=== PATIENT | male | born 1945 | race African-American/Black ===

== ENCOUNTER 2016-11-22 13:02 | Inpatient (IN) | payer MEDICARE, OTHER ==
[~2016-11-22] VITALS: Ht 175.3 cm; Wt 78.9 kg
[~2016-11-22 13:02] MED LIST: ATOR20TA65 PO; CLOP75TA33 PO; FAMO20TA8 PO; GLIP5TAB12 PO; LISI-186 PO; LORA10TA7 PO; LOSA25TA12 PO; METF-240 PO; PRED5TAB48 PO; TAMS0.4C31 PO; VERA240C2 PO; WARF2TAB55 PO
[2016-11-22] MEDS ORDERED: METHYLPREDNISOLONE SOD SUCC 125 MG/2 ML VIAL IV STA (15:44)
[2016-11-22] MEDS ORDERED: IPRATROPIUM/ALBUTEROL 0.5-3(2.5)MG/3ML NEB HHN ONE (16:00)
[2016-11-22 16:19] LABS: HEMATOCRIT. 39.4 % (42.0-52.0); HEMOGLOBIN. 12.4 g/dL (14.0-18.0); MEAN CORPUSCULAR HEMOGLOBIN 27.7 pg (28.0-32.0); MEAN CORPUSCULAR HGB CONC 31.4 g/dL (31.0-37.0); MEAN CORPUSCULAR VOLUME 88.2 fL (80.0-94.0); MEAN PLATELET VOLUME 9.1 fl (7.4-10.4); PLATELET 146 x1000/uL (130-400); RED BLOOD CELL COUNT 4.46 mill/uL (4.7-6.1); RED CELL DISTRIBUTION WIDTH 16.3 % (11.6-14.6); WHITE BLOOD COUNT 12.3 x1000/uL (4.5-11.0)
[2016-11-22 16:20] LABS: DIFFERENTIAL COMMENT 1
[2016-11-22 16:21] LABS: INR 1.5; PARTIAL THROMBOPLASTIN TIME 25.4 sec (24.0-34.0); PROTHROMBIN TIME 15.1 sec
[2016-11-22 16:33] LABS: ALANINE AMINOTRANSFERASE 23 IU/L (13-61); ANION GAP 11; CARBON DIOXIDE 28 mEq/L (21-32); CHLORIDE 110 mEq/L (98-107); INDEX HEMOLYSI 1 (1-3); INDEX ICTERIC 1 (1-4); INDEX LIPEMIC 1 (1-3); NT PRO B-TYPE NATRIURETIC PEP 1118 pg/mL (5-125); TROPONIN I 0.07 ng/mL (0.00-0.04); UREA NITROGEN BLOOD 23 mg/dL (7-21); eGFR > 60 mL/min (>60)
[2016-11-22 16:37] LABS: PLATELET ESTIMATE NORMAL
[2016-11-22 18:36] LABS: BG BASE EXCESS -2.7 mmol/L (-2.0-2.0); BG CARBOXYHEMOGLOBIN 0.9 % (0.5-1.5); BG DEOXYHEMOGLOBIN 5.4 % (0.0-5.0); BG FRACTION INSPIRED OXYGEN 21; BG HCO3 ACT 20.2 mmol/L (22.0-26.0); BG METHEMOGLOBIN 0.4 % (0.0-1.5); BG OXYGEN SATURATION 94.5 % (92.0-98.5); BG OXYHEMOGLOBIN 93.3 % (94.0-97.0); BG PH 7.447 (7.350-7.450); BG PO2 72.2 mmHg (75.0-100.0); BG SAMPLE SITE RIGHT BRACHIAL; BG TOTAL HEMOGLOBIN 13.4 g/dL (12.0-18.0); BG VENT MODE ROOM AIR
[2016-11-22] MEDS ORDERED: CLONIDINE 0.1MG TABLET PO PRN (19:00)
[2016-11-22] MEDS ORDERED: DIPHENHYDRAMINE 50MG/ML VIAL IV PRN (19:00)
[2016-11-22] MEDS ORDERED: HYDROCODONE/ACETAMINOPHEN 5/325MG TABLET PO PRN (19:00)
[2016-11-22] MEDS ORDERED: ONDANSETRON HCL 4MG/2ML VIAL IV PRN (19:00)
[2016-11-22] MEDS ORDERED: ACETAMINOPHEN 325MG TABLET PO PRN (19:00)
[2016-11-22] MEDS ORDERED: IPRATROPIUM/ALBUTEROL 0.5-3(2.5)MG/3ML NEB INH PRN (19:00)
[2016-11-22 21:45] VITALS: BP 109/66
[2016-11-22 22:00] VITALS: BP 109/66
[2016-11-22] MEDS: METHYLPREDNISOLONE SOD SUCC 125 MG/2 ML VIAL IV SCH (22:28)
[2016-11-23] VITALS: BP 112/65
[2016-11-23] MEDS ORDERED: LEVOFLOXACIN 500MG PREMIX 100 ML IV SCH (02:00)
[2016-11-23 04:00] VITALS: BP 140/84
[2016-11-23 04:15] LABS: *AMPHETAMINES SCREEN URINE NEGATIVE (NEGATIVE); *BARBITURATES SCREEN URINE NEGATIVE (NEGATIVE); *BENZODIAZEPINES SCREEN URINE NEGATIVE (NEGATIVE); *COCAINE SCREEN URINE NEGATIVE (NEGATIVE); CANNABINOID URINE SCREEN NEGATIVE (NEGATIVE); ECSTASY MDMA SCREEN URINE NEGATIVE (NEGATIVE); METHADONE URINE SCREEN NEGATIVE (NEGATIVE); OPIATES URINE SCREEN PRESUMTIVE POSITIVE (NEGATIVE); PHENCYCLIDINE URINE SCREEN NEGATIVE (NEGATIVE)
[2016-11-23] MEDS: METHYLPREDNISOLONE SOD SUCC 125 MG/2 ML VIAL IV SCH ×2 (05:29→13:19)
[2016-11-23] MEDS: METFORMIN HCL 500MG TABLET PO SCH ×2 (06:22→17:50)
[2016-11-23 06:23] LABS: HEMATOCRIT. 36.5 % (42.0-52.0); HEMOGLOBIN. 11.5 g/dL (14.0-18.0); MEAN CORPUSCULAR HEMOGLOBIN 27.9 pg (28.0-32.0); MEAN CORPUSCULAR HGB CONC 31.4 g/dL (31.0-37.0); MEAN CORPUSCULAR VOLUME 88.6 fL (80.0-94.0); MEAN PLATELET VOLUME 9.8 fl (7.4-10.4); PLATELET 139 x1000/uL (130-400); RED BLOOD CELL COUNT 4.11 mill/uL (4.7-6.1); RED CELL DISTRIBUTION WIDTH 16.1 % (11.6-14.6); WHITE BLOOD COUNT 11.1 x1000/uL (4.5-11.0)
[2016-11-23 06:33] LABS: DIFFERENTIAL COMMENT 1
[2016-11-23 07:21] LABS: ALBUMIN 2.7 g/dL (3.4-5.0); ANION GAP 13; CARBON DIOXIDE 24 mEq/L (21-32); CHLORIDE 107 mEq/L (98-107); INDEX HEMOLYSI 1 (1-3); INDEX ICTERIC 1 (1-4); INDEX LIPEMIC 1 (1-3); UREA NITROGEN BLOOD 21 mg/dL (7-21)
[2016-11-23 07:26] LABS: ALANINE AMINOTRANSFERASE 20 IU/L (13-61); HDL CHOLESTEROL 43 mg/dL (40-59); LDL CHOLESTEROL 62 mg/dL (5-100); TRIGLYCERIDE 32 mg/dL (0-150); TROPONIN I 0.04 ng/mL (0.00-0.04); eGFR > 60 mL/min (>60)
[2016-11-23 08:00] VITALS: BP 139/86
[2016-11-23] MEDS ORDERED: DEXTROSE 50% WATER 50ML SYRINGE IV PRN (08:45)
[2016-11-23] MEDS: GLIPIZIDE 5MG TABLET PO SCH ×2 (08:48→17:51)
[2016-11-23] MEDS: LISINOPRIL 5MG TABLET PO SCH (08:48)
[2016-11-23] MEDS: VERAPAMIL HCL 240MG SR TABLET PO SCH (08:49)
[2016-11-23] MEDS: CLOPIDOGREL 75MG TABLET PO SCH (08:49)
[2016-11-23] MEDS: FAMOTIDINE 20MG TABLET PO SCH ×2 (08:49→17:51)
[2016-11-23] MEDS: LOSARTAN POTASSIUM 25 MG TABLET PO SCH (08:49)
[2016-11-23] MEDS ORDERED: PREDNISONE 10MG TABLET PO SCH (09:00)
[2016-11-23] MEDS: IPRATROPIUM/ALBUTEROL 0.5-3(2.5)MG/3ML NEB INH SCH ×4 (09:06→20:53)
[2016-11-23 09:58] LABS: ACANTHOCYTES 1+; ANISOCYTOSIS 1+; PLATELET ESTIMATE NORMAL
[2016-11-23] MEDS: INSULIN DETEMIR UD 100 UNITS/ML SYR SUBCUT SCH ×2 (10:40→21:25)
[2016-11-23 12:00] VITALS: BP 124/77
[2016-11-23] MEDS: BLOOD SUGAR DIAGNOSTIC STRIP TEST SCH ×3 (12:18→20:54)
[2016-11-23] MEDS: INSULIN LISPRO 100 UNITS/ML SUBCUT SCH ×3 (13:21→21:23)
[2016-11-23] MEDS: FUROSEMIDE 40MG/4ML VIAL IVP SCH (15:55)
[2016-11-23 16:00] VITALS: BP 108/65
[2016-11-23] MEDS ORDERED: WARFARIN SODIUM 3MG TABLET PO SCH (18:00)
[2016-11-23 20:00] VITALS: BP 107/66
[2016-11-23] MEDS: ATORVASTATIN CALCIUM 20MG TABLET PO SCH (20:53)
[2016-11-23] MEDS: BUDESONIDE 0.5MG/2ML NEB HHN SCH (20:53)
[2016-11-23] MEDS: LORATADINE 10MG TABLET PO SCH (20:54)
[2016-11-23] MEDS: TAMSULOSIN HCL 0.4MG SR CAPSULE PO SCH (20:54)
[2016-11-23] MEDS: NITROGLYCERIN OINT 1GM/INCH UDPKT TD SCH (22:00)
[2016-11-24] VITALS: BP 99/67
[2016-11-24] MEDS: IPRATROPIUM/ALBUTEROL 0.5-3(2.5)MG/3ML NEB INH SCH ×6 (01:01→20:34)
[2016-11-24] MEDS: LEVOFLOXACIN 500MG PREMIX 100 ML IV SCH (03:41)
[2016-11-24 04:00] VITALS: BP 122/70
[2016-11-24 05:41] LABS: HEMATOCRIT. 35.8 % (42.0-52.0); HEMOGLOBIN. 11.3 g/dL (14.0-18.0); MEAN CORPUSCULAR HEMOGLOBIN 27.6 pg (28.0-32.0); MEAN CORPUSCULAR HGB CONC 31.4 g/dL (31.0-37.0); MEAN CORPUSCULAR VOLUME 87.8 fL (80.0-94.0); MEAN PLATELET VOLUME 9.6 fl (7.4-10.4); PLATELET 147 x1000/uL (130-400); RED BLOOD CELL COUNT 4.08 mill/uL (4.7-6.1); RED CELL DISTRIBUTION WIDTH 16.1 % (11.6-14.6)
[2016-11-24 05:44] LABS: INR 1.2; PROTHROMBIN TIME 12.5 sec
[2016-11-24] MEDS: NITROGLYCERIN OINT 1GM/INCH UDPKT TD SCH ×3 (05:46→21:24)
[2016-11-24] MEDS: BLOOD SUGAR DIAGNOSTIC STRIP TEST SCH ×4 (05:53→20:48)
[2016-11-24 06:22] LABS: ANION GAP 13; CALCIUM 8.6 mg/dL (8.5-10.1); CARBON DIOXIDE 27 mEq/L (21-32); CHLORIDE 108 mEq/L (98-107); INDEX HEMOLYSI 1 (1-3); INDEX ICTERIC 1 (1-4); INDEX LIPEMIC 1 (1-3); UREA NITROGEN BLOOD 20 mg/dL (7-21); eGFR > 60 mL/min (>60)
[2016-11-24] MEDS: INSULIN LISPRO 100 UNITS/ML SUBCUT SCH ×4 (06:25→21:23)
[2016-11-24 06:56] LABS: DIFFERENTIAL COMMENT 1
[2016-11-24 08:00] VITALS: BP 124/78
[2016-11-24] MEDS: BUDESONIDE 0.5MG/2ML NEB HHN SCH ×2 (08:45→20:36)
[2016-11-24] MEDS: VERAPAMIL HCL 240MG SR TABLET PO SCH (09:36)
[2016-11-24] MEDS: FAMOTIDINE 20MG TABLET PO SCH ×2 (09:36→17:15)
[2016-11-24] MEDS: CLOPIDOGREL 75MG TABLET PO SCH (09:37)
[2016-11-24] MEDS: LOSARTAN POTASSIUM 25 MG TABLET PO SCH (09:37)
[2016-11-24] MEDS: GLIPIZIDE 5MG TABLET PO SCH ×2 (09:37→17:16)
[2016-11-24] MEDS: METFORMIN HCL 500MG TABLET PO SCH ×2 (09:37→17:16)
[2016-11-24] MEDS: LISINOPRIL 5MG TABLET PO SCH (09:45)
[2016-11-24] MEDS: PREDNISONE 20MG TABLET PO SCH (09:45)
[2016-11-24 12:00] VITALS: BP 133/76
[2016-11-24] MEDS: INSULIN DETEMIR UD 100 UNITS/ML SYR SUBCUT SCH ×2 (13:02→21:24)
[2016-11-24 15:43] LABS: CHLORIDE 107 mEq/L (98-107); INDEX HEMOLYSI 1 (1-3); INDEX ICTERIC 1 (1-4); INDEX LIPEMIC 1 (1-3)
[2016-11-24 15:51] LABS: ANION GAP 11; CALCIUM 8.5 mg/dL (8.5-10.1); CARBON DIOXIDE 28 mEq/L (21-32); UREA NITROGEN BLOOD 17 mg/dL (7-21); URIC ACID 4.1 mg/dL (2.6-7.2); eGFR > 60 mL/min (>60)
[2016-11-24 16:00] VITALS: BP 112/61
[2016-11-24] MEDS: ENOXAPARIN 80MG/0.8ML SYR SUBCUT SCH (16:33)
[2016-11-24] MEDS: FUROSEMIDE 40MG/4ML VIAL IVP SCH (16:33)
[2016-11-24] MEDS ORDERED: WARFARIN SODIUM 5MG TABLET PO SCH (18:00)
[2016-11-24 19:49] LABS: PLATELET ESTIMATE NORMAL
[2016-11-24 20:00] VITALS: BP 93/55
[2016-11-24] MEDS: LORATADINE 10MG TABLET PO SCH (20:48)
[2016-11-24] MEDS: TAMSULOSIN HCL 0.4MG SR CAPSULE PO SCH (20:48)
[2016-11-24] MEDS: ATORVASTATIN CALCIUM 20MG TABLET PO SCH (20:48)
[2016-11-25] VITALS (7 sets, daily range): BP systolic 102–129; BP diastolic 61–70
[2016-11-25] MEDS: IPRATROPIUM/ALBUTEROL 0.5-3(2.5)MG/3ML NEB INH SCH ×6 (00:20→21:18)
[2016-11-25] MEDS: LEVOFLOXACIN 500MG PREMIX 100 ML IV SCH (02:17)
[2016-11-25 05:25] LABS: INR 1.4; PROTHROMBIN TIME 14.7 sec
[2016-11-25] MEDS: NITROGLYCERIN OINT 1GM/INCH UDPKT TD SCH ×3 (06:00→21:06)
[2016-11-25] MEDS: ENOXAPARIN 80MG/0.8ML SYR SUBCUT SCH ×2 (06:29→18:08)
[2016-11-25] MEDS: BLOOD SUGAR DIAGNOSTIC STRIP TEST SCH ×4 (06:29→20:52)
[2016-11-25] MEDS: INSULIN LISPRO 100 UNITS/ML SUBCUT SCH ×4 (07:15→20:53)
[2016-11-25] MEDS: METFORMIN HCL 500MG TABLET PO SCH ×2 (07:15→18:08)
[2016-11-25] MEDS: LOSARTAN POTASSIUM 25 MG TABLET PO SCH (09:00)
[2016-11-25] MEDS: VERAPAMIL HCL 240MG SR TABLET PO SCH (09:15)
[2016-11-25] MEDS: CLOPIDOGREL 75MG TABLET PO SCH (09:15)
[2016-11-25] MEDS: PREDNISONE 20MG TABLET PO SCH (09:15)
[2016-11-25] MEDS: FAMOTIDINE 20MG TABLET PO SCH ×2 (09:15→16:13)
[2016-11-25] MEDS: GLIPIZIDE 5MG TABLET PO SCH ×2 (09:15→16:13)
[2016-11-25] MEDS: LISINOPRIL 5MG TABLET PO SCH (09:16)
[2016-11-25] MEDS: BUDESONIDE 0.5MG/2ML NEB HHN SCH ×2 (10:21→16:00)
[2016-11-25] MEDS: INSULIN DETEMIR UD 100 UNITS/ML SYR SUBCUT SCH ×2 (10:41→21:06)
[2016-11-25] MEDS: FUROSEMIDE 40MG/4ML VIAL IVP SCH (16:08)
[2016-11-25] MEDS ORDERED: WARFARIN SODIUM 7.5MG TABLET PO SCH (18:00)
[2016-11-25] MEDS: ATORVASTATIN CALCIUM 20MG TABLET PO SCH (20:52)
[2016-11-25] MEDS: TAMSULOSIN HCL 0.4MG SR CAPSULE PO SCH (20:52)
[2016-11-25] MEDS: LORATADINE 10MG TABLET PO SCH (20:52)
[2016-11-26] VITALS: BP 109/65
[2016-11-26] MEDS: IPRATROPIUM/ALBUTEROL 0.5-3(2.5)MG/3ML NEB INH SCH ×3 (00:46→10:23)
[2016-11-26] MEDS: LEVOFLOXACIN 500MG PREMIX 100 ML IV SCH (01:05)
[2016-11-26 04:00] VITALS: BP 102/62
[2016-11-26] MEDS: BUDESONIDE 0.5MG/2ML NEB HHN SCH ×2 (04:36→10:23)
[2016-11-26 05:47] LABS: INR 1.9; PROTHROMBIN TIME 19.7 sec
[2016-11-26] MEDS: NITROGLYCERIN OINT 1GM/INCH UDPKT TD SCH ×2 (05:49→14:00)
[2016-11-26] MEDS: ENOXAPARIN 80MG/0.8ML SYR SUBCUT SCH (05:49)
[2016-11-26] MEDS: BLOOD SUGAR DIAGNOSTIC STRIP TEST SCH ×2 (05:50→12:18)
[2016-11-26] MEDS: INSULIN LISPRO 100 UNITS/ML SUBCUT SCH ×2 (05:52→12:15)
[2016-11-26 06:07] LABS: ANION GAP 12; BASOPHILS % 0.2 % (0.0-2.0); CALCIUM 8.7 mg/dL (8.5-10.1); CARBON DIOXIDE 32 mEq/L (21-32); CHLORIDE 103 mEq/L (98-107); DIFFERENTIAL COMMENT 0; EOSINOPHILS % 0.2 % (0.0-5.0); HEMATOCRIT. 37.1 % (42.0-52.0); HEMOGLOBIN. 11.7 g/dL (14.0-18.0); INDEX HEMOLYSI 1 (1-3); INDEX ICTERIC 1 (1-4); INDEX LIPEMIC 1 (1-3); LYMPHOCYTES % 10.6 % (20.0-50.0); MEAN CORPUSCULAR HEMOGLOBIN 27.5 pg (28.0-32.0); MEAN CORPUSCULAR HGB CONC 31.6 g/dL (31.0-37.0); MEAN CORPUSCULAR VOLUME 87.3 fL (80.0-94.0); MEAN PLATELET VOLUME 9.7 fl (7.4-10.4); MONOCYTES % 12.9 % (2.0-8.0); NEUTROPHILS % 76.1 % (40.0-76.0); PLATELET 165 x1000/uL (130-400); RED BLOOD CELL COUNT 4.25 mill/uL (4.7-6.1); RED CELL DISTRIBUTION WIDTH 16.5 % (11.6-14.6); UREA NITROGEN BLOOD 17 mg/dL (7-21); WHITE BLOOD COUNT 21.7 x1000/uL (4.5-11.0); eGFR > 60 mL/min (>60)
[2016-11-26 08:00] VITALS: BP 101/56
[2016-11-26] MEDS: GLIPIZIDE 5MG TABLET PO SCH (08:59)
[2016-11-26] MEDS: METFORMIN HCL 500MG TABLET PO SCH (08:59)
[2016-11-26] MEDS: CLOPIDOGREL 75MG TABLET PO SCH (08:59)
[2016-11-26] MEDS: PREDNISONE 20MG TABLET PO SCH (08:59)
[2016-11-26] MEDS: FAMOTIDINE 20MG TABLET PO SCH (08:59)
[2016-11-26] MEDS: LOSARTAN POTASSIUM 25 MG TABLET PO SCH (09:00)
[2016-11-26] MEDS: LISINOPRIL 5MG TABLET PO SCH (09:00)
[2016-11-26] MEDS: VERAPAMIL HCL 240MG SR TABLET PO SCH (09:00)
[2016-11-26] MEDS: INSULIN DETEMIR UD 100 UNITS/ML SYR SUBCUT SCH (10:00)
[2016-11-26 12:00] VITALS: BP 111/65
[2016-11-26 12:34] VITALS: BP 111/65
== END 2016-11-26 14:14 | disposition home or self-care (01) | DRG 291 ==
LOC: ER 13:40 → 5WST 19:01
PROVIDERS: ADMIT Internal Medicine; ATTEND Internal Medicine
DX: I11.0 Hypertensive heart disease with heart failure (principal); J96.00 Acute respiratory failure, unspecified whether with hypoxia or hypercapnia; J44.1 Chronic obstructive pulmonary disease with (acute) exacerbation; E44.0 Moderate protein-calorie malnutrition; J98.11 Atelectasis; R65.10 Systemic inflammatory response syndrome (SIRS) of non-infectious origin without acute organ dysfunction; I50.23 Acute on chronic systolic (congestive) heart failure; I25.118 Atherosclerotic heart disease of native coronary artery with other forms of angina pectoris; D64.9 Anemia, unspecified; E78.5 Hyperlipidemia, unspecified; I25.5 Ischemic cardiomyopathy; I27.2 Other secondary pulmonary hypertension; R73.9 Hyperglycemia, unspecified; T38.0X5A Adverse effect of glucocorticoids and synthetic analogues, initial encounter; Z79.01 Long term (current) use of anticoagulants; I25.2 Old myocardial infarction; Z85.118 Personal history of other malignant neoplasm of bronchus and lung; Z86.711 Personal history of pulmonary embolism; Z87.891 Personal history of nicotine dependence; Z86.718 Personal history of other venous thrombosis and embolism; Z90.2 Acquired absence of lung [part of]; Z98.890 Other specified postprocedural states; Z68.25 Body mass index [BMI] 25.0-25.9, adult
CPT/HCPCS: 36415; 36600; 71010; 80048; 80053; 80061; 80305; 82375; 82805; 82962; 83036; 83605; 83735; 83880; 84484; 84550; 85025; 85610; 85730; 87040; 87086; 93005; 93970; 94640; 96374; 99285; J1650; J1815; J1940; J1956; J2930; J7040; J7512; J7620; J7626

== ENCOUNTER 2016-12-03 06:14 | Inpatient (IN) | payer MEDICARE, OTHER ==
[~2016-12-03] VITALS: Ht 172.7 cm; Wt 73.9 kg
[~2016-12-03 06:14] MED LIST changes: -METF-240 PO; +METF500T4 PO
[2016-12-03] MEDS ORDERED: ONDANSETRON HCL 4MG/2ML VIAL IV STA (06:40)
[2016-12-03] MEDS ORDERED: METHYLPREDNISOLONE SOD SUCC 125 MG/2 ML VIAL IV STA (06:40)
[2016-12-03] MEDS ORDERED: SODIUM CHLORIDE 0.9% 1,000 ML IV ONE (06:40)
[2016-12-03] MEDS ORDERED: MORPHINE SULFATE 4 MG/ML CPJ (NOT FOR IM USE) IV STA (06:40)
[2016-12-03] MEDS ORDERED: IPRATROPIUM/ALBUTEROL 0.5-3(2.5)MG/3ML NEB HHN ONE (06:45)
[2016-12-03] MEDS ORDERED: NITROGLYCERIN OINT 1GM/INCH UDPKT TD ONE (06:45)
[2016-12-03] MEDS ORDERED: ASPIRIN 81MG TABLET PO ONE (06:45)
[2016-12-03] MEDS ORDERED: FUROSEMIDE 40MG/4ML VIAL IV ONE (06:45)
[2016-12-03 07:04] LABS: BASOPHILS % 0.2 % (0.0-2.0); HEMATOCRIT. 39.4 % (42.0-52.0); HEMOGLOBIN. 12.5 g/dL (14.0-18.0); LYMPHOCYTES % 13.2 % (20.0-50.0); MEAN CORPUSCULAR HGB CONC 31.7 g/dL (31.0-37.0); MEAN CORPUSCULAR VOLUME 88.3 fL (80.0-94.0); MEAN PLATELET VOLUME 9.2 fl (7.4-10.4); MONOCYTES % 8.5 % (2.0-8.0); NEUTROPHILS % 77.1 % (40.0-76.0); PLATELET 202 x1000/uL (130-400); RED BLOOD CELL COUNT 4.47 mill/uL (4.7-6.1); RED CELL DISTRIBUTION WIDTH 16.7 % (11.6-14.6); WHITE BLOOD COUNT 14.8 x1000/uL (4.5-11.0)
[2016-12-03 07:13] LABS: D-DIMER 0.88 mg/L FEU (<0.50); PROTHROMBIN TIME 20.7 sec
[2016-12-03 07:20] LABS: ALANINE AMINOTRANSFERASE 31 IU/L (13-61); ALBUMIN 3.1 g/dL (3.4-5.0); ANION GAP 11; CALCIUM 8.7 mg/dL (8.5-10.1); CARBON DIOXIDE 30 mEq/L (21-32); CHLORIDE 110 mEq/L (98-107); INDEX HEMOLYSI 1 (1-3); INDEX ICTERIC 1 (1-4); INDEX LIPEMIC 1 (1-3); LIPASE 104 IU/L (73-393); NT PRO B-TYPE NATRIURETIC PEP 779 pg/mL (5-125); TROPONIN I 0.04 ng/mL (0.00-0.04); UREA NITROGEN BLOOD 22 mg/dL (7-21); eGFR > 60 mL/min (>60)
[2016-12-03 09:11] LABS: CLARITY URINE CLEAR (CLEAR); COLOR URINE YELLOW (YELLOW); GLUCOSE URINE NEGATIVE (NEGATIVE); KETONES URINE NEGATIVE (NEGATIVE); LEUKOCYTE ESTERASE URINE NEGATIVE (NEGATIVE); NITRITE URINE NEGATIVE (NEGATIVE); OCCULT BLOOD URINE NEGATIVE (NEGATIVE); PROTEIN URINE NEGATIVE (NEGATIVE); SPECIFIC GRAVITY URINE 1.007 (1.005-1.030); UROBILINOGEN URINE 0.2 E.U./dL (0.2-1.0)
[2016-12-03] MEDS ORDERED: ONDANSETRON HCL 4MG/2ML VIAL IV PRN (12:30)
[2016-12-03] MEDS ORDERED: IPRATROPIUM/ALBUTEROL 0.5-3(2.5)MG/3ML NEB INH PRN (12:30)
[2016-12-03] MEDS ORDERED: DOCUSATE SODIUM 100MG CAPSULE PO PRN (12:30)
[2016-12-03 13:20] VITALS: BP 129/78
[2016-12-03 16:00] VITALS: BP 129/79
[2016-12-03] MEDS ORDERED: LACTULOSE 20G/30ML UDC PO NR (16:45)
[2016-12-03] MEDS: IPRATROPIUM/ALBUTEROL 0.5-3(2.5)MG/3ML NEB INH SCH ×2 (17:20→20:50)
[2016-12-03 20:00] VITALS: BP 126/74
[2016-12-03] MEDS: GUAIFENESIN 600MG ER TABLET PO SCH (21:02)
[2016-12-03] MEDS: CYCLOBENZAPRINE 10MG TABLET PO PRN (21:51)
[2016-12-04] VITALS: BP 132/74
[2016-12-04] MEDS: ACETAMINOPHEN 325MG TABLET PO PRN ×2 (00:48→09:47)
[2016-12-04] MEDS: FAMOTIDINE 20MG TABLET PO SCH ×3 (01:15→18:44)
[2016-12-04] MEDS: IPRATROPIUM/ALBUTEROL 0.5-3(2.5)MG/3ML NEB INH SCH ×4 (02:21→20:00)
[2016-12-04 04:00] VITALS: BP 131/87
[2016-12-04 06:51] LABS: INR 2.4; PROTHROMBIN TIME 24.8 sec
[2016-12-04 06:53] LABS: HEMATOCRIT. 33.7 % (42.0-52.0); HEMOGLOBIN. 10.6 g/dL (14.0-18.0); MEAN CORPUSCULAR HGB CONC 31.5 g/dL (31.0-37.0); MEAN PLATELET VOLUME 9.3 fl (7.4-10.4); PLATELET 175 x1000/uL (130-400); RED BLOOD CELL COUNT 3.78 mill/uL (4.7-6.1); RED CELL DISTRIBUTION WIDTH 16.7 % (11.6-14.6); WHITE BLOOD COUNT 18.2 x1000/uL (4.5-11.0)
[2016-12-04 07:21] LABS: ANION GAP 12; CALCIUM 8.4 mg/dL (8.5-10.1); CARBON DIOXIDE 31 mEq/L (21-32); CHLORIDE 106 mEq/L (98-107); HDL CHOLESTEROL 44 mg/dL (40-59); INDEX HEMOLYSI 1 (1-3); INDEX ICTERIC 1 (1-4); INDEX LIPEMIC 1 (1-3); LDL CHOLESTEROL 61 mg/dL (5-100); TRIGLYCERIDE 58 mg/dL (0-150); TROPONIN I 0.04 ng/mL (0.00-0.04); UREA NITROGEN BLOOD 20 mg/dL (7-21); eGFR > 60 mL/min (>60)
[2016-12-04 07:33] LABS: DIFFERENTIAL COMMENT 1
[2016-12-04] MEDS: OMEPRAZOLE 20MG CAPSULE EXTENDED RELEASE PO SCH (07:40)
[2016-12-04 07:55] LABS: MAGNESIUM 2.1 mg/dL (1.8-2.4)
[2016-12-04 08:00] VITALS: BP 128/82
[2016-12-04] MEDS: METFORMIN HCL 500MG TABLET PO SCH ×2 (09:02→18:44)
[2016-12-04] MEDS: LOSARTAN POTASSIUM 25 MG TABLET PO SCH (09:02)
[2016-12-04] MEDS: GUAIFENESIN 600MG ER TABLET PO SCH ×2 (09:02→20:19)
[2016-12-04] MEDS: CLOPIDOGREL 75MG TABLET PO SCH (09:03)
[2016-12-04] MEDS: LISINOPRIL 5MG TABLET PO SCH (09:03)
[2016-12-04] MEDS: CYCLOBENZAPRINE 10MG TABLET PO PRN (10:01)
[2016-12-04 12:00] VITALS: BP 122/67
[2016-12-04 14:08] LABS: ANISOCYTOSIS 1+; NUCLEATED RED BLOOD CELLS 1 /100 WBC; PLATELET ESTIMATE NORMAL
[2016-12-04] MEDS: HYDROCODONE/ACETAMINOPHEN 5/325MG TABLET PO PRN ×3 (14:45→22:14)
[2016-12-04 16:00] VITALS: BP 123/76
[2016-12-04] MEDS ORDERED: WARFARIN SODIUM 2MG TABLET PO SCH (18:00)
[2016-12-04] MEDS: WARFARIN SODIUM 3MG TABLET PO SCH (18:38)
[2016-12-04 19:44] VITALS: BP 135/68
[2016-12-04] MEDS: LORATADINE 10MG TABLET PO SCH (20:19)
[2016-12-04] MEDS: TAMSULOSIN HCL 0.4MG SR CAPSULE PO SCH (20:19)
[2016-12-04] MEDS: ATORVASTATIN CALCIUM 20MG TABLET PO SCH (20:19)
[2016-12-05] VITALS (7 sets, daily range): BP systolic 106–141; BP diastolic 64–79
[2016-12-05] MEDS: IPRATROPIUM/ALBUTEROL 0.5-3(2.5)MG/3ML NEB INH SCH ×4 (01:16→20:07)
[2016-12-05] MEDS: METFORMIN HCL 500MG TABLET PO SCH ×2 (07:27→17:16)
[2016-12-05] MEDS: OMEPRAZOLE 20MG CAPSULE EXTENDED RELEASE PO SCH (07:27)
[2016-12-05] MEDS: LISINOPRIL 5MG TABLET PO SCH (08:20)
[2016-12-05] MEDS: CLOPIDOGREL 75MG TABLET PO SCH (08:30)
[2016-12-05] MEDS: FAMOTIDINE 20MG TABLET PO SCH ×2 (08:30→17:17)
[2016-12-05] MEDS: LOSARTAN POTASSIUM 25 MG TABLET PO SCH (08:30)
[2016-12-05] MEDS: GUAIFENESIN 600MG ER TABLET PO SCH ×2 (08:30→19:41)
[2016-12-05] MEDS: ACETAMINOPHEN 325MG TABLET PO PRN (10:54)
[2016-12-05] MEDS: MORPHINE SULFATE 2 MG/ML CPJ (NOT FOR IM USE) IV PRN ×2 (13:57→19:38)
[2016-12-05] MEDS: WARFARIN SODIUM 3MG TABLET PO SCH (17:16)
[2016-12-05] MEDS: ATORVASTATIN CALCIUM 20MG TABLET PO SCH (19:40)
[2016-12-05] MEDS: TAMSULOSIN HCL 0.4MG SR CAPSULE PO SCH (19:40)
[2016-12-05] MEDS: LORATADINE 10MG TABLET PO SCH (19:41)
[2016-12-06] MEDS: IPRATROPIUM/ALBUTEROL 0.5-3(2.5)MG/3ML NEB INH SCH ×3 (01:30→13:24)
[2016-12-06] MEDS: MORPHINE SULFATE 2 MG/ML CPJ (NOT FOR IM USE) IV PRN ×3 (02:12→13:47)
[2016-12-06 04:00] VITALS: BP 112/75
[2016-12-06 05:54] LABS: EOSINOPHILS % 0.5 % (0.0-5.0); HEMATOCRIT. 36.6 % (42.0-52.0); HEMOGLOBIN. 11.6 g/dL (14.0-18.0); LYMPHOCYTES % 14.7 % (20.0-50.0); MEAN CORPUSCULAR HEMOGLOBIN 27.9 pg (28.0-32.0); MEAN CORPUSCULAR HGB CONC 31.8 g/dL (31.0-37.0); MEAN CORPUSCULAR VOLUME 87.6 fL (80.0-94.0); MEAN PLATELET VOLUME 9.2 fl (7.4-10.4); MONOCYTES % 6.9 % (2.0-8.0); NEUTROPHILS % 76.9 % (40.0-76.0); PLATELET 214 x1000/uL (130-400); RED BLOOD CELL COUNT 4.17 mill/uL (4.7-6.1); RED CELL DISTRIBUTION WIDTH 16.7 % (11.6-14.6); WHITE BLOOD COUNT 12.8 x1000/uL (4.5-11.0)
[2016-12-06 06:00] LABS: INR 1.7; PROTHROMBIN TIME 17.8 sec
[2016-12-06 06:27] LABS: ALBUMIN 2.8 g/dL (3.4-5.0); CHLORIDE 106 mEq/L (98-107); INDEX HEMOLYSI 1 (1-3); INDEX ICTERIC 1 (1-4); INDEX LIPEMIC 1 (1-3)
[2016-12-06 06:32] LABS: ALANINE AMINOTRANSFERASE 18 IU/L (13-61); ANION GAP 13; CALCIUM 8.4 mg/dL (8.5-10.1); CARBON DIOXIDE 26 mEq/L (21-32); UREA NITROGEN BLOOD 15 mg/dL (7-21); eGFR > 60 mL/min (>60)
[2016-12-06 07:53] VITALS: BP 119/73
[2016-12-06] MEDS: METFORMIN HCL 500MG TABLET PO SCH ×2 (08:12→18:15)
[2016-12-06] MEDS: FAMOTIDINE 20MG TABLET PO SCH ×2 (08:12→16:38)
[2016-12-06] MEDS: CLOPIDOGREL 75MG TABLET PO SCH (08:12)
[2016-12-06] MEDS: GUAIFENESIN 600MG ER TABLET PO SCH (08:12)
[2016-12-06] MEDS: LISINOPRIL 5MG TABLET PO SCH (08:12)
[2016-12-06] MEDS: LOSARTAN POTASSIUM 25 MG TABLET PO SCH (08:12)
[2016-12-06 12:00] VITALS: BP 138/85
[2016-12-06] MEDS ORDERED: MAGNESIUM CITRATE 300ML SOLUTION PO NR (14:00)
[2016-12-06 16:00] VITALS: BP 121/77
[2016-12-06] MEDS: CYCLOBENZAPRINE 10MG TABLET PO PRN (16:38)
[2016-12-06 17:37] VITALS: BP 121/77
[2016-12-06] MEDS: WARFARIN SODIUM 3MG TABLET PO SCH (18:15)
[2016-12-06 18:16] VITALS: BP 121/77
[2016-12-06] MEDS: HYDROCODONE/ACETAMINOPHEN 5/325MG TABLET PO PRN (18:16)
== END 2016-12-06 19:09 | DRG 291 ==
LOC: ER 06:16 → 7WST 11:47 → SUPCPDRO 11:50 → 7WST 12-06 17:06
PROVIDERS: ADMIT Family Medicine Adult Medicine; ATTEND Family Medicine Adult Medicine
DX: I11.0 Hypertensive heart disease with heart failure (principal); J96.90 Respiratory failure, unspecified, unspecified whether with hypoxia or hypercapnia; J44.1 Chronic obstructive pulmonary disease with (acute) exacerbation; E44.1 Mild protein-calorie malnutrition; I50.43 Acute on chronic combined systolic (congestive) and diastolic (congestive) heart failure; E11.9 Type 2 diabetes mellitus without complications; T38.0X5A Adverse effect of glucocorticoids and synthetic analogues, initial encounter; M79.1 Myalgia; D72.829 Elevated white blood cell count, unspecified; R00.0 Tachycardia, unspecified; I25.119 Atherosclerotic heart disease of native coronary artery with unspecified angina pectoris; I25.2 Old myocardial infarction; Z95.5 Presence of coronary angioplasty implant and graft; Z86.718 Personal history of other venous thrombosis and embolism; Z86.711 Personal history of pulmonary embolism; Z79.01 Long term (current) use of anticoagulants; Z79.899 Other long term (current) drug therapy; Z87.891 Personal history of nicotine dependence; Z85.118 Personal history of other malignant neoplasm of bronchus and lung; Z68.24 Body mass index [BMI] 24.0-24.9, adult; Y92.89 Other specified places as the place of occurrence of the external cause
CPT/HCPCS: 36415; 71010; 74000; 80048; 80053; 80061; 81003; 83605; 83690; 83735; 83880; 84484; 85025; 85379; 85610; 87040; 87086; 87804; 93005; 93970; 94640; 94664; 96361; 96374; 96375; 97116; 97162; 99285; J1940; J2270; J2405; J2930; J7030; J7620